=== PATIENT | female | born 1985 | race Caucasian/White ===

== ENCOUNTER 2018-06-08 21:29 | Observation (INO) | payer MEDICAID | END 2018-06-08 22:30 | disposition home or self-care (01) | LOC: FLD 21:29 → UNDODISOB 22:30 | PROVIDERS: ADMIT Obstetrics & Gynecology; ATTEND Obstetrics & Gynecology | DX: Z34.83 Encounter for supervision of other normal pregnancy, third trimester (principal); Z3A.38 38 weeks gestation of pregnancy | CPT/HCPCS: G0378 ==